=== PATIENT | female | born 1985 | race Caucasian/White ===

== ENCOUNTER 2024-12-15 13:41 | Outpatient (AMB) | payer OTHER, SELFPAY ==
--- NOTE | 2024-12-15 13:52 | A.OFFPC_ITS ---
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 Allergies No Known Allergies (No Known Allergies*) Allergy (Unverified 12/15/24 14:01) Medication List - Last Reconciled 12/15/24 by MICHELL Acuna creatine monohydrate ea PO multivitamin (Daily Multi-Vitamin tablet) 1 tab PO DAILY psyllium husk (Daily Fiber) 0.4 grams PO DAILY Tobacco use date assessed: 12/15/24 Dental Screening Dental Screen Date: 12/15/24 Did you have a dental visit in the last 12 months?: Yes Did you have a dental problem in the last 6 months where you did not have access to dental care?: No Was dental information given to patient?: Patient has dentist HPI HPI Comments History of Present Illness Details This is a 39 year old female here to establish care. She is due for a physical. She is trying to lose weight. She joined the gym, and her goal is to start going 1-3 days per week. She is the mother to a 6-year-old and works at [employer] part-time [employer]. She is also trying to follow a high-protein low carb diet. She spoke about her weight with her OBGYN. There was brief discussion about weight loss medication, but she wants to try lifestyle modifications 1st. She is agreeable to screening labs, and she will follow up if she wants to pursue referrals to weight loss management, certified professional midwife or medications in the future. 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 Dr. Carter is her eye doctor. She has annual skin exams at [facility]. She will get the flu vaccine. Last Tdap 2018. Her father had colon polyps but no history of colon cancer. She endorses seasonal allergy symptoms more prevalent in the springtime, and she gets itching and wet sensation in her ears and itching and dry skin on her scalp. It is not painful. No hearing loss. She takes Claritin as needed. She is interested in allergy testing, and I referred her today. ROS: Constitutional: No unexplained weight loss, fever, chills, fatigue or night sweats. Eyes: No vision changes, blurry vision, double vision, eye pain, eye redness, eye discharge. ENT: No hearing loss, sore throat or sinus pain. No ear pain. See HPI. Respiratory: No shortness of breath, cough or sputum production. Cardiovascular: No chest pain, chest pressure or chest discomfort. No palpitations or pedal edema. Gastrointestinal: No anorexia, nausea, vomiting or diarrhea. No abdominal pain or blood in stool. Genitourinary: No dysuria, hematuria, urinary frequency. Neurologic: No headache, dizziness, syncope, unilateral weakness, ataxia, numbness or tingling in the extremities. Musculoskeletal: No muscle pain, back pain, joint pain or swelling. Hematologic/Lymphatics: No bleeding or bruising. No painful lymph nodes. Skin: See HPI Endocrine: No cold or heat intolerance. No polyuria or polydipsia. Psychiatric: No depression or anxiety. No SI/HI. Physical exam: Constitutional: Alert, in no distress. Head: Normocephalic. Eyes: Pupils are equal, round and reactive to light. Extraocular muscles intact. Ear, Nose and Throat: Both canals have a very small amount of dry skin at the base. There is no erythema or discharge.. TMs normal. Inferior turbinates 2+. No nasal discharge. No oral lesions. Neck: Supple, Full range of motion. No lymphadenopathy. No palpable thyroid masses. Respiratory: Clear to auscultation. Cardiovascular: S1 S2 regular. No murmurs. Gastrointestinal: Abdomen soft, non-tender, non-distended. Normal bowel sounds. No palpable masses. Neurologic: No focal neurological deficits. Symmetric patellar reflexes. Moves all extremities spontaneously. Sensation intact bilaterally. Skin: No rashes Musculoskeletal: No gross deformities. Normal range of motion. Extremities: Warm and well perfused. No clubbing, cyanosis or edema. Psychiatric: Normal mood and affect [facility] Medical History (Updated 12/15/24 @ 15:19 by MICHELL Acuna) Class 1 obesity Routine physical examination Environmental allergies Surgical History (Updated 12/15/24 @ 14:14 by Fozia Dean CMA) Lavinia teeth extracted History of cholecystectomy History of Family History (Updated 12/15/24 @ 14:08 by Fozia Dean CMA) Mother Asthma Primary biliary cholangitis Hypertension Father Hypertension Cardiovascular disease Paternal Grandfather Cardiovascular disease Heart attack Brother Cardiovascular disease FH: mental illness Depression Paternal Grandmother Primary central nervous system lymphoma Social History (Updated 12/15/24 @ 14:08 by Fozia Dean [facility]) Housing: House Alcohol intake: current Patient Tobacco Use Status: Never used Tobacco e-Cigarette/Vaping Use: Never Used Second Hand Smoke Exposure: No service: No Current occupational status: employed 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 1. Little interest or pleasure in doing things: not at all 2. Feeling down, depressed, or hopeless: not at all 3. Trouble falling or staying asleep, or sleeping too much: not at all 4. Feeling tired or having little energy: not at all 5. Poor appetite or overeating: not at all 6. Feeling bad about yourself - or that you are a failure or have let yourself or your family down: not at all 7. Trouble concentrating on things, such as reading the newspaper or watching television: not at all 8. Moving or speaking so slowly that other people could have noticed. Or the opposite - being so fidgety or restless that you have been moving around a lot more than usual: not at all 9. Thoughts that you would be better off or of hurting yourself in some way: not at all Total score: 0 Depression Screening Interpretation: Negative Depression Screening Done: Yes 73185 - PHQ-9 Billing: Yes Source: Developed by Drs. David Oviedo, Caty Ramos, James Hunt and colleagues, with an educational jennifer from [employer]. Thrive Questionnaire Date Thrive assessed: 12/15/24 I am a: Patient What is your living situation today?: I have a steady place to live Within the past 12 months, did the food you bought not last and you didn't have the money to get more?: Never true Within the past 12 months, did you worry whether your food would run out before you got money to buy more?: Never true Do you have trouble paying for medicines?: No Do you have trouble getting transportation to medical appointments?: No Do you have trouble paying your heating and electricity bill?: No Do you have trouble taking care of your child, family member or friend?: No Do you have trouble with day-to-day activities such as bathing, preparing meals, shopping, managing finances, etc.?: No Are you currently unemployed and looking for a job?: No Are you interested in more education?: No Please select the resources that you would like help with: None Currently or been in a relationship where the following occur: No concerns reported THRIVE Score: 0 AUDIT C Alcohol Use Questionnaire (AUDIT-C) 1. How often do you have a drink containing alcohol?: 2-4 times a month 2. How many drinks containing alcohol do you have on a typical day when you are drinking?: 1 or 2 3. How often do you have six or more drinks on one occasion?: Never Total Score: 2 PAULINO-7 AMB Questionnaire PAULINO-7 Date PAULINO - 7 assessed: 12/15/24 Feeling nervous, anxious, or on edge: 1 = Several days Not being able to stop or control worryin = Not at all Worrying too much about different things: 0 = Not at all Trouble relaxin = Not at all Being so restless that it is hard to sit still: 0 = Not at all Becoming easily annoyed or irritable: 1 = Several days Feeling afraid as if something awful might happen: 0 = Not at all Total PAULINO-7 score (0-4 normal; 5-9 mild; 10-14 moderate; 15-21 severe): 2 Source: Developed by Drs. David Oviedo, Caty Ramos, James Hunt and colleagues, with an educational jennifer from [employer]. PAULINO-7 Assessment Billing PAULINO-7 Assessment Tool: PAULINO-7 Assessment 11498 Physical exam (Primary Care) Vital Signs: Last Vital Signs Temp 97.7 F 12/15/24 14:08 Pulse 88 12/15/24 14:08 Resp 15 12/15/24 14:08 BP 124/82 12/15/24 14:08 Pulse Ox 99 12/15/24 14:08 Oxygen Delivery Method Room Air 12/15/24 14:08 BMI result Body Mass Index 34.1 Tobacco/Smoking Status: Tobacco use Status Tobacco use date assessed 12/15/24 12/15/24 14:11 Patient Tobacco Use Status Never used Tobacco 12/15/24 14:11 e-Cigarette/Vaping Use Never Used 12/15/24 14:11 PHQ-9: PHQ-9 Score PHQ-9: Total score 0 12/15/24 13:55 Depression Screening Interpretation: Negative Thrive Assessment: Date of Thrive Assessment Date Thrive assessed 12/15/24 12/15/24 13:55 Currently or been in a relationship where the following occur: No concerns reported Coding Level of Care Code New Pt Prev Care 18-39yr(35613 Diagnoses Routine physical examination Z00.00 Environmental allergies Z91.09 Class 1 obesity E66.811 Additional Codes PAULINO-7 Assessment Billing - PAULINO-7 Assessment Tool: PAULINO-7 Assessment 69218 ([id number]) PHQ-9 - 93759 - PHQ-9 Billing: Yes ([id number]) Assessment & Plan Assessment & Plan (1) Routine physical examination: Code(s): Z00.00 - Encounter for general adult medical examination without abnormal findings Category: Medical Plan: Patient is seen today for a routine physical. As part of this visit we reviewed the following issues, which are considered and essential part of preventative health in this age group: - Breast Cancer screening - Annual Neck Pinner exam - Blood pressure screening - Cholesterol screening - Osteoporosis prevention including calcium/vitamin D intake, weight bearing exercise & smoking cessation - Nutritional and exercise counseling - Counseling of injury prevention including fire prevention, smoke alarms and seat belt usage - Screening for depression - Education about skin cancer - Recommendations about immunizations - Recommendation of an eye exam - Screening for substance abuse She will return for screening labs. She requested a vitamin-D level and was advised that insurance may not cover it. (2) Environmental allergies: Code(s): Z91.09 - Other allergy status, other than to drugs and biological substances Category: Medical Plan: Continue Claritin as needed. She can also use a small amount of hvuf-zfq-vrmmoii cortisone cream in the ears twice daily as needed for itching and dermatitis. Referred to Allergy and immunology. (3) Class 1 obesity: Code(s): E66.811 - Obesity, class 1 Category: Medical Plan: See HPI discussion. Plan Schedule physical exam in 1 year. Orders: Orders TSH reflex Free T4 Today Z00.00 - Encounter for general adult medical examination without abnormal findings, Z91.09 - Other allergy status, other than to drugs and biological substances Lipid Panel Today Z00.00 - Encounter for general adult medical examination without abnormal findings, Z91.09 - Other allergy status, other than to drugs and biological substances Comprehensive Met. Panel Today Z00.00 - Encounter for general adult medical examination without abnormal findings, Z91.09 - Other allergy status, other than to drugs and biological substances Complete Blood Count no Diff Today Z00.00 - Encounter for general adult medical examination without abnormal findings, Z91.09 - Other allergy status, other than to drugs and biological substances Vitamin D 25-OH (D2 and D3) Today Z00.00 - Encounter for general adult medical examination without abnormal findings Referrals Allergy & Immunology Referral Z00.00 - Encounter for general adult medical examination without abnormal findings, Z91.09 - Other allergy status, other than to drugs and biological substances
[2024-12-15 14:08] VITALS: BP 124/82; PULSE 88; RESP 15; TEMP 36.5; O2SAT 99; BMI 34.1
--- OUTSIDE RECORDS SUMMARY | 2024-12-15 15:39 | XMS_ITS ---
Author Name [facility] Organization Unknown Problems Problem Status Onset Date Problem Type Date of Resoluti on Source Acute bacterial sinusitis active EncounterDiagnosisAct CCT Uterus subseptus active 2022-06-19 ProblemAct H [facility] Acute non-recurrent [facility] En[facility] Encounter Type Encounter Reason Primary Diagnosis Location Date Ambulatory Acute sinusitis, unspecified [facility] 06/19/2022 Ambulatory Acute sinusitis, unspecified [facility] 05/03/2022 Care Team Organization Name Specialty Phone Email Start Date End Da te [facility] 05/03/2022 05/03/2022 [facility] 05/03/2022
--- OUTSIDE RECORDS SUMMARY | 2024-12-15 15:39 | XMS_ITS | Clinical Summary ---
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 14 tablet 06/19/2022 Active predniSONE (DELTASONE) 20 MG tabletIndicatio ns:Acute non-recurrent maxillary sinusitis,Acute bacterial sinusitis Take 2 tablets (40 mg total) by mouth daily. With food. 10 tablet 06/19/2022 Active Active Problems Problem Noted Date Diagnosed Date Uterus subseptus 06/19/2022 Social History Tobacco Use Types Packs/Day Years Used Date Smoking Tobacco: Never Assessed Comments Unknown Sex and Gender Information Value Date Recorded Sex Assigned at Not on file Legal Sex Female 1:59 PM EST Gender Identity Not on file Sexual Orientation Not on file Last Filed Vital Signs Vital Sign Reading Time Taken Comments Blood Pressure 143/84 06/19/2022 3:16 PM EDT Pulse 83 06/19/2022 3:16 PM EDT Temperature 36.5 C (97.7 F) 06/19/2022 3:16 PM EDT Respiratory Rate 16 05/03/2022 2:45 PM EST Oxygen Saturation 99% 06/19/2022 3:16 PM EDT Inhaled Oxygen Concentration - - Weight 74.8 kg (165 lb) 06/19/2022 3:16 PM EDT Height 160 cm (5' 3 ) 06/19/2022 3:16 PM EDT Body Mass Index 29.23 06/19/2022 3:16 PM EDT Plan of Treatment Health Maintenance Due Date Last Done Comments Hepatitis C Virus Screening 1987 HIV Screening 01/28/2000 DTaP/Tdap/Td Vaccines (1 - Tdap) 2006 Hepatitis B Vaccines (1 of 3 - 19+ 3-dose series) 2006 Pap Smear (Ages 21-65) 01/28/2008 HPV Vaccines (1 - 3-dose SCD M series) 2014 Influenza Vaccine 10/28/2024 12/06/2020 COVID-19 Vaccine (1 - 2023-2 5 season) 2024 Pneumococcal Vaccine: Pediat christopher (0-5 Years) and At-Risk Patients (6 to 49 Years) Aged Out No longer eligible b ased on patient's age to complete this topic Insurance [facility] HMO/POS Care Teams Linux Server Engineer Relationship Specialty Start Date End Date Unknown Unknow Provider Address PCP - General
== END 2024-12-15 14:44 | disposition home or self-care (01) ==
LOC: HO.HMCFM 13:42
PROVIDERS: PCP Physician Assistant Medical; Visit Provider Physician Assistant Medical
DX: Z00.00 Encounter for general adult medical examination without abnormal findings (principal); Z91.09 Other allergy status, other than to drugs and biological substances; E66.811 Obesity, class 1; Z68.34 Body mass index [BMI] 34.0-34.9, adult

== ENCOUNTER → 2024-12-15 13:41 | Outpatient (BNVA) | payer OTHER, SELFPAY | PROVIDERS: PCP Physician Assistant Medical; Visit Provider Physician Assistant Medical | DX: Z00.00 Encounter for general adult medical examination without abnormal findings (principal); Z76.89 Persons encountering health services in other specified circumstances; E66.811 Obesity, class 1; Z68.34 Body mass index [BMI] 34.0-34.9, adult; Z91.09 Other allergy status, other than to drugs and biological substances; Z13.31 Encounter for screening for depression; Z13.39 Encounter for screening examination for other mental health and behavioral disorders | CPT/HCPCS: 96127 ==

== ENCOUNTER 2024-12-16 09:03 | Outpatient (REF) | payer OTHER, SELFPAY ==
--- OUTSIDE RECORDS SUMMARY | 2024-12-16 09:45 | XMS_ITS | Clinical Summary ---
Author Organization [facility] Address [address] [place] [address] Care Team Providers Care Lamp Shade Sewer Name Role Phone Unknown Primary Care Provider [...] patient's age to complete this topic Insurance [facility] HMO/POS Care Teams Lamp Shade Sewer Relationship Specialty Start Date End Date Unknown Unknow Provider Address PCP - General
[2024-12-16 11:25] LABS: Hematocrit 42.9 % (37.0-47.0); Hemoglobin 14.6 g/dl (12.0-16.0); Mean Corpuscular HGB Conc 34.0 g/dl (31.0-35.0); Mean Corpuscular Hemoglobin 30.4 pg (27.0-33.0); Mean Corpuscular Volume 89.4 fL (80.0-98.0); NRBC Abs Auto 0.000 X10*3/uL (0.0-0.012); NRBC Pct Auto 0.0 /100WBC (0.0-0.2); Platelet Count 249 X10*3/uL (160-400); Red Blood Count 4.80 X10*6/uL (4.20-5.50); White Blood Count 6.5 X10*3/uL (4.8-10.8)
[2024-12-16 11:58] LABS: Alanine Aminotransferase 26 U/L (0-31); Albumin Level 4.5 g/dL (3.5-5.0); Alkaline Phosphatase 87 U/L (39-117); Anion Gap 10 (12-20); Aspartate Amino Transferase 31 U/L (5-31); Blood Urea Nitrogen 11 mg/dL (9-16); Calcium 9.0 mg/dL (8.4-10.2); Carbon Dioxide 25 mmol/L (22-29); Chloride 108 mmol/L (96-108); Cholesterol 238 mg/dL (<200); Estimated Glomerular Filt Rate > 60; HDL Cholesterol 46 mg/dL (>40); Potassium 4.0 mmol/L (3.3-5.1); Sodium 139 mmol/L (135-145); Total Protein 7.3 g/dL (6.5-8.0); Triglycerides 176 mg/dL (<150)
[2024-12-22 15:03] LABS: Vitamin D 25-OH, D2 <4 ng/mL; Vitamin D 25-OH, D3 32 ng/mL; Vitamin D 25-OH, Total 32 ng/mL (30-100)
== END 2024-12-16 09:04 | disposition home or self-care (01) ==
LOC: HO.WFDLDS 09:03
PROVIDERS: Visit Provider Physician Assistant Medical
DX: Z00.00 Encounter for general adult medical examination without abnormal findings (principal); Z91.09 Other allergy status, other than to drugs and biological substances; Z13.6 Encounter for screening for cardiovascular disorders; Z13.29 Encounter for screening for other suspected endocrine disorder
CPT/HCPCS: 36415; 80053; 80061; 82306; 84443; 85027